=== PATIENT | male | born 1975 | race Hispanic/Latino ===

== ENCOUNTER 2019-10-24 19:28 | Emergency (ER) | payer SELFPAY ==
[2019-10-24] MEDS ORDERED: NALOXONE 0.4 MG/1 ML INJ IV ONE (20:35)
[2019-10-24] MEDS ORDERED: SODIUM CHLORIDE 0.9% 1000 ML 1,000 ML IV ONE (20:37)
--- NOTE | 2019-10-24 20:39 | Emergency Department Report ---
History of Present Illness - General Chief Complaint: Overdose Stated Complaint: OVERDOSE Time Seen by Provider: 10/24/19 20:15 Source: patient, EMS Mode of arrival: Stretcher Limitations: No Limitations - History of Present Illness Initial Comments: Patient is a 44-year-old male that presents emergency room with a Suboxone overdose. Patient states he was taking Suboxone to try to stop the cravings of heroin. Patient states he gets it from his Sub[facility]one clinic. Patient states he accidentally overdosed. Patient states he did not realize how much he had taken. Patient denies suicidal ideations. Patient denies trying to hurt himself. Patient denies homicidal ideations. Patient denies depression. Patient denies wanting to get high. Patient states he just mixed up his dose. Patient denies chest pain or shortness of breath. Patient denies fever and chills. Patient denies recent travel. Patient denies recent international travel. Pat ient denies exposure to the novel coronavirus. Patient denies sick contacts. Patient denies fever and chills. Patient denies cough. Patient denies diarrhea. Patient denies coming in contact with anybody with symptoms of the novel coronavirus. Complaint: accidental overdose -: Sudden Intent: other How Overdose Was Discovered: called family/friend Context: Accidental Overdose: medication error Treatments Prior to Arrival: oxygen, narcan - Related Data Allergies Allergy/AdvReac Type Severity Reaction Status Date / Time No Known Allergies Allergy Unverified 10/24/19 20:35 ED Review of Systems ROS: Stated complaint: OVERDOSE Other details as noted in HPI Constitutional: denies: chills, fever Eyes: denies: eye pain, eye discharge, vision change ENT: denies: ear pain, throat pain Respiratory: denies: cough, shortness of breath, wheezing Cardiovascular: denies: chest pain, palpitations Endocrine: no symptoms reported Gastrointestinal: denies: abdominal pain, nausea, diarrhea Genitourinary: denies: urgency, dysuria Musculoskeletal: denies: back pain, joint swelling, arthralgia Skin: denies: rash, lesions Neurological: denies: headache, weakness, paresthesias Psychiatric: denies: anxiety, depression Hematological/Lymphatic: denies: easy bleeding, easy bruising ED Past Medical Hx - Past Medical History Previous Medical History?: Yes Additional medical history: Opiate addiction - Surgical History Past Surgical History?: Yes Additional Surgical History: L knee surgery - Family History Family history: no significant - Social History Smoking Status: Current Every Day Smoker Substance Use Type: Alcohol ED Physical Exam - General Limitations: No Limitations General appearance: in no apparent distress, lethargic (But arousable) - Head Head exam: Present: atraumatic, normocephalic - Eye Eye exam: Present: normal appearance, PERRL Pupils: Present: normal accommodation - ENT ENT exam: Present: mucous membranes dry - Neck Neck exam: Present: normal inspection - Respiratory Respiratory exam: Present: normal lung sounds bilaterally. Absent: respiratory distress, wheezes, rales - Cardiovascular Cardiovascular Exam: Present: regular rate, normal rhythm. Absent: systolic murmur, diastolic murmur, rubs, gallop - GI/Abdominal GI/Abdominal exam: Present: soft, normal bowel sounds - Rectal Rectal exam: Present: deferred - Extremities Exam Extremities exam: Present: normal inspection - Back Exam Back exam: Present: normal inspection - Neurological Exam Neurological exam: Present: oriented X3, CN II-XII intact - Psychiatric Psychiatric exam: Present: normal affect, normal mood - Skin Skin exam: Present: warm, dry, intact, normal color. Absent: rash ED Course Vital Signs 10/24/19 10/24/19 20:14 20:30 Temperature 98.4 F Pulse Rate 72 73 Respiratory 14 13 Rate Blood Pressure 120/64 Blood Pressure 106/76 [Left] O2 Sat by Pulse 98 96 Oximetry - Reevaluation(s) Reevaluation #1: Initial evaluation done. Patient is still lethargic. Patient given Narcan. 10/24/19 20:39 Reevaluation #2: Patient awake alert and oriented x3. Patient still denies suicidal ideations or suicide attempt. Patient states he just made a medication error. 10/24/19 21:41 Reevaluation #3: I discussed admission with the patient and patient refused admission. Patient will require admission and lengthy observation since the Suboxone has a long half-life. Patient refused. I discussed the risk with patient. Patient voiced understanding of the risk. Patient is alert and oriented x4. Patient signed AMA form. I also gave the patient return to ER instructions. Patient voiced understanding of instructions. 10/24/19 23:41 ED Medical Decision Making - Lab Data Result diagrams: 10/24/19 21:03 10/24/19 21:03 - EKG Data -: EKG Interpreted by Me EKG shows normal: sinus rhythm, axis, intervals, QRS complexes, ST-T waves Rate: normal - Medical Decision Making Patient is a 44-year-old male that presents emergency room with a Suboxone overdose. Patient was given Narcan prior to arrival and patient was given Narcan again in the ER. Patient responded well to Narcan. Patient was lethar gic and became alert and oriented after his second dose of Narcan. Patient's labs are essentially unremarkable. Patient took a long-acting opiate and will require lengthy observation. I discussed results and admission with patient and the patient refused. Patient signed AMA form. Patient voiced understanding of the risk. - Differential Diagnosis Accidental overdose, medication error, lethargy Critical Care Time: Yes Critical care time in (mins) excluding proc time.: 35 Critical care attestation.: If time is entered above; I have spent that time in minutes in the direct care of this critically ill patient, excluding procedure time. Critical Care Time: 35 minutes ED Disposition Clinical Impression: Overdose Qualifiers: Encounter type: initial encounter Injury intent: accidental or unintentional Qualified Code(s): T50.901A - Poisoning by unspecified drugs, medicaments and biological substances, accidental (unintentional), initial encounter Disposition: DC-07 LEFT AGAINST MED ADVICE Is pt being admited?: No Does the pt Need Aspirin: No Condition: Stable Instructions: Buprenorphine/Naloxone (By mouth), Medication Safety for Children (ED), Opioid Pain Management (ED) Additional Instructions: Patient to follow-up with primary care in 2 to 3 days. Patient to follow-up with Suboxone clinic in 2 to 3 days. Patient to rest. Patient to increase water. Patient to take Tylenol or ibuprofen as needed for pain. Patient to return to the ER if condition worsens, changes or new symptoms arise. Referrals: PRIMARY CARE,MD [Primary Care Provider] - 2-3 Days Forms: AMA Form Time of Disposition: 23:45
[2019-10-24 20:45] VITALS: BP 120/64
[2019-10-24 21:56] LABS: Basophils # (Auto) 0.1 K/mm3 (0.0-0.1); Basophils % (Auto) 0.7 % (0.0-1.8); Eosinophils # (Auto) 0.1 K/mm3 (0.0-0.4); Eosinophils % (Auto) 0.9 % (0.0-4.3); Hematocrit 39.4 % (35.5-45.6); Hemoglobin 13.7 gm/dl (11.8-15.2); Lymphocytes # (Auto) 1.7 K/mm3 (1.2-5.4); Lymphocytes % (Auto) 21.7 % (13.4-35.0); Mean Corpuscular HGB Conc 35 % (32-34); Mean Corpuscular Volume 95 fl (84-94); Monocytes # (Auto) 0.6 K/mm3 (0.0-0.8); Monocytes % (Auto) 7.4 % (0.0-7.3); Platelet Count 256 K/mm3 (140-440); Red Blood Count 4.15 M/mm3 (3.65-5.03); Red Cell Distribution Width 13.2 % (13.2-15.2)
[2019-10-24 22:23] LABS: Alanine Aminotransferase 34 units/L (7-56); Albumin 3.9 g/dL (3.9-5); BUN/Creatinine Ratio 15; Blood Urea Nitrogen 15 mg/dL (9-20); Calcium 8.6 mg/dL (8.4-10.2); Hemolysis Index 4
== END 2019-10-24 23:45 | disposition left against medical advice (07) ==
LOC: ED 19:28
DX: T40.4X1A Poisoning by other synthetic narcotics, accidental (unintentional), initial encounter (principal); F17.200 Nicotine dependence, unspecified, uncomplicated; Z98.890 Other specified postprocedural states; Y92.89 Other specified places as the place of occurrence of the external cause
CPT/HCPCS: 36415; 80053; 85025; 93005; 96361; 96374; 99284; J2310; J7030; 80320; G0480